=== PATIENT | male | born 2000 | race Caucasian/White ===

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

== ENCOUNTER 2022-08-03 18:38 | Emergency (ER) | payer OTHER ==
[~2022-08-03] VITALS: Ht 185.4 cm; Wt 84.9 kg
[2022-08-03 23:12] VITALS: BP 129/67
== END 2022-08-04 | disposition left against medical advice (07) ==
LOC: M ED 18:38
DX: Z53.21 Procedure and treatment not carried out due to patient leaving prior to being seen by health care provider (principal)